=== PATIENT | female | born 1990 | race Caucasian/White ===

== ENCOUNTER 2024-01-24 15:25 | Outpatient (CLI) | payer OTHER, SELFPAY ==
--- NOTE | 2024-01-24 15:45 | CRLHL7_ITS ---
For Patients: As a result of the Century Cures Act, medical imaging exams and procedure reports are released immediately into your electronic medical record. You may view this report before your referring provider. If you have questions, please contact your health care provider. INDICATION: Bleeding in early , IVF. COMPARISON: None available. TECHNIQUE: Real-time keller-scale imaging of the pelvis was performed. FINDINGS: Sonographic imaging demonstrates a single living intrauterine gestation. The embryo has a regular cardiac rate measuring 155 beats per minute. The embryo`s crown-rump length measures 6.9 cm which corresponds to a gestational age of 13 weeks 1 day with sonographic due date 07/30/2024. There is a developing placenta. No evidence of a perigestational hemorrhage. The ovaries were not visualized. No free fluid in the pelvic cul-de-sac. IMPRESSION: Single living intrauterine gestation corresponding to an ultrasound gestational age of 13 weeks 1 day with sonographic due date 07/30/2024. Dictated by Melania Banks MD @ 01/25/2024 2:41:45 AM (Electronically Signed)
== END 2024-01-24 15:26 | disposition home or self-care (01) ==
LOC: US 15:28
PROVIDERS: PCP Family Medicine; Visit Provider Family Medicine
DX: O20.9 Hemorrhage in early pregnancy, unspecified (principal)
CPT/HCPCS: 76801

== ENCOUNTER 2024-03-16 12:38 | Outpatient (CLI) | payer OTHER, SELFPAY ==
--- NOTE | 2024-03-16 13:00 | CRLHL7_ITS ---
For Patients: As a result of the Century Cures Act, medical imaging exams and procedure reports are released immediately into your electronic medical record. You may view this report before your referring provider. If you have questions, please contact your health care provider. Addendum: Cervical, thoracic, lumbar and sacral spine not well evaluated due to position. LVOT also not well visualized. Attention to these structures on the level 2 ultrasound follow-up recommended. Rocael Seals M.D. Diagnostic Radiologist [email or web address]. [email or web address] INDICATION: Evaluate anatomy. COMPARISON: 01/24/2024 TECHNIQUE: Real time keller scale imaging of the fetus was performed as well as color Doppler analysis of the umbilical vessels. FINDINGS: Sonographic imaging demonstrates a single living intrauterine gestation. Fetus demonstrates a regular cardiac rate of 134 beats per minute. Fetus has a variable position. The placenta lies posteriorly without evidence of placenta previa. Placental edge 4.4 cm from the internal cervical os. Amniotic fluid volume appears normal. Single deepest vertical pocket: 4.9 cm. The cervix is closed and measures 3.9 cm in length. The composite ultrasound gestational age is calculated at 20 weeks 1 day with an estimated sonographic due date of 08/02/2024. The estimated weight is 344 grams which lies at the 37th %. The following biometric measurements were obtained: Biparietal diameter: 4.6 cm/20 weeks 0 days 29th% Head circumference: 17.5 cm/20 weeks 0 days 23rd% Abdominal circumference: 15.1 cm/20 weeks 2 days 40th% Femur length: 3.3 cm/20 weeks 2 days 39th% The HC/AC ratio measures: 1.16 range (1.07-1.25) On anatomic survey, there is a normal appearance of the cerebral ventricles, cavum septi pellucidi, cisterna magna and cerebellum. The nose, lips, and facial profile appear normal. The cervical, thoracic and lumbar spine are well visualized and appear normal. There is a normal four-chamber heart view and the left and right ventricular outflow tracts appear normal. The diaphragm and stomach appear normal. The kidneys and bladder also appear normal. There is a normal three-vessel cord and cord insertion site. The four extremities appear normal. Echogenic area within the left thorax is present measuring 1.7 x 1.8 x 1.9 cm. IMPRESSION: Echogenic area within the left thorax measuring 1.9 cm, indeterminate. Level 2 ultrasound recommended. Dictated by Rocael Seals MD @ 03/16/2024 2:30:07 PM Signed by: Rocael Seals @ 03/16/2024 2:30:07 PM (Electronic Signature) (Electronically Signed)
== END 2024-03-16 12:39 | disposition home or self-care (01) ==
LOC: US 12:38
PROVIDERS: PCP Family Medicine; Visit Provider Family Medicine
DX: Z34.92 Encounter for supervision of normal pregnancy, unspecified, second trimester (principal); Z3A.20 20 weeks gestation of pregnancy
CPT/HCPCS: 76805